=== PATIENT | male | born 2000 | race Asian ===

== ENCOUNTER 2021-04-19 05:34 | Emergency (ER) | payer OTHER, BC ==
[~2021-04-19] VITALS: Ht 180.3 cm; Wt 72.6 kg
[2021-04-19 05:47] VITALS: BP_SYST 142
[2021-04-19 07:48] VITALS: BP_SYST 138
== END 2021-04-19 07:48 | disposition home or self-care (01) ==
LOC: SED 05:34
DX: S63.501A Unspecified sprain of right wrist, initial encounter (principal); S10.91XA Abrasion of unspecified part of neck, initial encounter; S60.811A Abrasion of right wrist, initial encounter; V49.49XA Driver injured in collision with other motor vehicles in traffic accident, initial encounter; Y93.89 Activity, other specified; Y92.89 Other specified places as the place of occurrence of the external cause; Y99.8 Other external cause status
CPT/HCPCS: 99283